=== PATIENT | female | born 1995 | race Caucasian/White ===

== ENCOUNTER 2018-12-01 08:56 | Emergency (ER) | payer SELFPAY ==
[2018-12-01] MEDS ORDERED: Acetaminophen 325 MG Tab PO ONE (09:32)
[2018-12-01] MEDS ORDERED: Lidocaine 1% 10 ML MDV INJECT ONE (09:32)
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
== END 2018-12-01 11:15 | disposition home or self-care (01) ==
LOC: JD.ED 08:56
DX: S41.111A Laceration without foreign body of right upper arm, initial encounter (principal); F17.210 Nicotine dependence, cigarettes, uncomplicated
CPT/HCPCS: 12002; 99282; A9270; J2001; 12001